=== PATIENT | female | born 1990 | race Caucasian/White ===

== ENCOUNTER → 2017-01-17 | Day surgery (SDC) | payer OTHER ==
[~2017-01-17] VITALS: Ht 154.9 cm; Wt 79.3 kg
[2017-01-17] VITALS (12 sets, daily range): BP systolic 104–132; BP diastolic 54–81; PULSE 64–93; RESP 9–28; O2SAT 94–100
[~2017-01-17] MED LIST: Bupivacaine-MPF 0.5% 30 mL Inj INFILTRATE ONE; Dexamethasone 4 mg/mL Inj IVPUSH PRN; Dexamethasone 4 mg/mL Inj ONE; EPHEDrine Sulfate 50 mg/mL Inj IVPUSH PRN; HYDROmorphone 0.5 mg/0.5 mL iSecure Syringe ONE; HYDROmorphone 1 mg/mL Inj IVPUSH PRN; Lactated Ringer's 1,000 ML IV SCH; Lactated Ringer's 500 ML IV PRN; MetoCLOpramide 5 mg/mL 2 mL Inj IVPUSH PRN; Ondansetron 2 mg/mL 2 mL Inj IVPUSH PRN; Ondansetron 2 mg/mL 2 mL Inj ONE; Phenylephrine 10,000 mCg/mL Inj IVPUSH PRN; Propofol 10,000 mCg/mL 20 mL Inj ONE; Rocuronium 10 mg/mL 5 mL Inj ONE; fentaNYL-PF 50 mCg/mL 2 mL Inj IVPUSH PRN; fentaNYL-PF 50 mCg/mL 2 mL Inj ONE
[2017-01-17] MEDS: Lactated Ringer's 1,000 ML IV SCH ×2 (05:42→07:25)
--- NOTE | 2017-01-17 07:13 | PCM.HPANE ---
Patient Data Date of Service: Jan 17, 2017 (0712) Surgeon Admitting Provider: Attending Provider:Jessica Hester MD Primary Care Physician:Jessica Hester MD Other Provider:Jonas High Anesthesia Reason for Visit Family Planning Ht/WT & BMI Height (Feet): 5 Height (Inches): 1.00 Weight (Kilograms): 79.3 Body Mass Index 33.00 Allergies Coded Allergies: No Known Allergies (Unverified , 01/12/17) Past Anesthesia History Anesthesia History: Denies:: Abnormal Airway, Anesthesia Reactions, Difficult Intubation, Fam Anesthesia Reaction, Fam Malignant Hypertherm, Malignant Hyperthermia Diabetes History Hx Diabetes?: No MRSA MRSA: No Medications Home Meds Incl Beta Toñito: No No Active Prescriptions or Reported Meds History History of ENT Problems?: No HEENT History: Positive for:: TMJ (pops with eating) Denies:: Abnormal Airway Difficult Intubation Dysphagia Hearing Problem Sinus Problem Denture Type: None Teeth Condition: Within Normal Limits Hx of Heart Problems?: No Cardiovascular History: Denies:: Coronary Artery Disease Hx of Respiratory Problem?: Yes Respiratory History: Positive for:: Asthma (seasonal ) Use of Inhalers / NEBS (albuterol) Denies:: Pneumonia Tuberculosis Hx Neurologic Problems?: No Neurological History: Denies:: Alzheimer's Disease CVA Dementia Dizziness Headaches Parkinson's Disease TIA Hx of GI Problems?: No Hx of Problems?: No Genitourinary History: Denies:: HX of Hemodialysis Urinary Tract Infection HX of Peritoneal Dialysis: No Female Hx: Denies:: Currently Problems with Breasts? Skin History: Denies:: History Skin Disorders? Pressure Ulcers Hx Musculoskeletal Problems?: No Hx of Psycho/Social Problems?: No Hx Surgeries?: Yes (tonsills and c section) Other History: Positive for:: Hospitalization (C- section) Denies:: Cancer Endocrine Disease Thyroid Disease History Blood Transfusions: Positive for:: Accept Blood Products? Denies:: Blood Transfusions Hx Diabetes: No Hx Alcohol Use: NoHx Substance Use: Yes (smoke) Stop/Bang S-Snoring: Do You Snore Loudly: Yes T-Tired: feel tired, fatigued: No O-Obsered: Observed not breath: No P-Blood Pressure: treated: No B- Body Mass Index > 35 kg/m2: No A- Age over 50: No N- Neck Large Circumference: No G- Gender Male: No CRISTY Total Score: 1 CRISTY Risk Assessment: Low Risk, <3 Yes Risk Assessment Category Category 1A: Patient has history of documented sleep apnea, and HAS NOT received any narcotic, sedative or anesthesia administration during this stay. Category 1B: Patient has history of documented sleep apnea, and HAS received any narcotic , sedative or anesthesia administration during this stay Category 2: Patient has SUSPECTED Obstructive Sleep Apnea, and HAS received any narcotic , sedative or anesthesia administration during this stay. Category 3: Patient has SUSPECTED Obstructive Sleep Apnea and HAS NOT received narcotic, sedative or anesthesia administration during this stay. Category 4: Outpatient in Procedural Areas with known sleep apnea or who screen positive for High Risk via the STOP/BANG questionnaire. Exam Exam Vital Signs Vital Signs Date Time Temp Pulse Resp B/P Pulse Ox O2 Delivery O2 Flow Rate FiO2 01/17/17 06:05 36.5 71 18 112/59 97 Room Air General Appearance: Alert, Oriented X3, Cooperative HEENT/AIRWAY: MP 2 Lungs: Clear to Auscultation Heart: Exam Unremarkable Meds/Labs/Diagnostics Admission Meds Current Medications Lactated Ringer's (Lr) 1,000 ml @ 120 mls/hr [id number] IV Last administered on t 05:42; Start 01/17/17 at 05:00; Stop 01/17/17 at 13:19 Plan Impression Patient chart reviewed, patient interviewed and anesthestic plan with risks, benefits, and alternatives discussed, and informed consent obtained. NPO per Anesth. Guidelines: Yes ASA Physical Status: ASA2 Mod Systemic Disease Anesthetic Plan: GA Bene/Risks/Altern/Consents: Yes HP Complete Prior to Induction: Yes Jhony Denny MD Jan 17, 2017 07:13
--- NOTE | 2017-01-17 08:34 | PCM.ANEP1 ---
Post Anesthesia PACU Phase 1 Assessment Vital Signs 36.6, 132/81, 100%, 20, 90 Vital Signs Date Time Temp Pulse Resp B/P Pulse Ox O2 Delivery O2 Flow Rate FiO2 01/17/17 06:05 36.5 71 18 112/59 97 Room Air Anesthetic Administered: GA Level of Alertness: Awake, talking CONNOLLY's with Equal Strength: Yes Pain: No Nausea or Vomiting: No CV Function & Hydration Stable: Yes Airway Device: none Oxygen Delivery: Room Air Lungs: Clear to Auscultation Dermatome Level: Full Sensation Summary uneventful GETA PACU Phase 2 Assessment Complications: No Follow up Care: No Patient Instructions Provided: N/A Jhony Denny MD Jan 17, 2017 08:34
--- NOTE | 2017-01-17 08:39 | PCM.DIGYN ---
Surgical Discharge Instruction Dates of Hospitalization Date of Hospital Admission Providers Admitting Physician: Primary Care Physician: Jessica Hester MD Attending Physician: Jessica Hester MD Diagnosis at Time of Discharge Diagnosis at time of discharge desire permanent sterilization s/p laparoscopy , BTL Post-operative diagnosis desire permanent sterilization s/p laparoscopy , BTL Problems: Diet Discharge Diet: No restrictions Activity Discharge Activity-General: Try not to overdue, Be up and about, Balance rest and activity, No driving while taking narcotic Dressing and Incisional Care Hygiene: May shower, NO bathtub, hot tub or whirlpool Additional Instructions Discharge Instructions please call office or go to ER if heavy vaginal bleeding, severe abdominal pain , foul smelling discharge, fever more than 100.4 or short of breath Follow Up Plan Follow Up Plan 2 weeks after procedure with Dr Hester Follow-up Provider (F9): Jessica Hester MD Follow-up appointment: Weeks (2) Call your provider for: Fever, Chills, Shortness of breath, Vomitting, Drainage at incision, Heavy vaginal bleeding, Wound redness, Increasing pain Jessica Hester MD Jan 17, 2017 08:39
[2017-01-17] MEDS: oxyCODONE-Acetamin 5-325 mg Tablet PO PRN ×2 (09:40→10:26)
--- NOTE | 2017-01-17 13:27 | DIS ---
[address] [address] DISCHARGE SUMMARY PATIENT: DANIELA SIMMONS : 1990 MR#: [id number] ADMIT: 01/17/2017 JOB ID: [id number] DIS: HOSPITAL COURSE: This is a 26-year-old female, 1, para one, status post by laparoscopic bilateral tubal ligation. The procedure was not complicated. PLAN: Discharge the patient home when she has recovered from her procedure, when she can void well, ambulate well, and pain well controlled. The patient was instructed to follow up in office two weeks after procedure. She is instructed that if there is heavy vaginal bleeding, severe abdominal pain, foul-smelling discharge, fever more than 100.4, or short of breath, she needs to call office or go to the ED for evaluation. Motrin 600 mg 30 pills prescribed for pain management. Percocet 5/325,10 pills prescribed for possible severe pain.
--- NOTE | 2017-01-17 13:33 | OP ---
[address] [address] OPERATIVE REPORT PATIENT: DANIELA SIMMONS : 1990 MR#: [id number] ADMIT: 01/17/2017 JOB ID: [id number] DATE OF SURGERY: 01/17/2017 SURGEON: Jessica Hestre M.D. SERVER DEVELOPER: Viry Guajardo M.D. certified ophthalmic assistant is necessary for this procedure to be completed for exposure and for performing the procedure together. PREOPERATIVE DIAGNOSIS(ES): A 26-year-old female, para 1, desire for permanent sterilization. POSTOPERATIVE DIAGNOSIS(ES): A 26-year-old female, para 1, desire for permanent sterilization. INDICATION OF PROCEDURE: A 26-year-old female, para 1, desire for permanent sterilization. PROCEDURE: Laparoscopy bilateral tubal ligation. This is a 26-year-old female. She is para 1. She presented to office to desire for permanent sterilization with bilateral tubal ligation. I discussed with patient several times about other choices of control including long reversible controls and she is also aware of other choices including control pills and injections and vaginal rings. She knows the benefit, risk of all these kinds of controls, but she still strongly desires for sterilization. Discussed the patient about the benefits and risks of sterilization, the risks including infection, bleeding, injury to the organs around the tubes including the uterus, ureters, major vessels, nerves, bladder, bowels. She also understood the risk of laparoscopy. Informed consent signed. PROCEDURE IN DETAIL: The patient was transferred to operating room after general anesthesia was noted to be adequate. She was placed in the dorsal lithotomy position. She was prepped as normal sterile fashion. A straight cath was down 100 cc of clear urine noticed. A speculum inserted into vagina to expose the cervix. The cervix was grasped by a single-tooth tenaculum and acorn manipulator is being placed for manipulation of the uterus. At this time, the attention was transferred to her abdomen. The Veress needle was inserted. After confirmed of the proper insertion, CO2 gas was placed in to form pneumoperitoneum. The maximum pressure limit was 15. At this time, the Veress needle removed and a 12 mm incision was placed at her umbilicus and a 10 mm trocar was placed with direct visualization. After confirmed insertion, the abdominal cavity was examined, has no abnormal findings. The patient was placed in Trendelenburg position. Her uterus was normal size, no abnormal findings. Bilateral ovaries and tubes looks normal. At this time, the Filshie clip was placed on the instrument and placed on the right tube at the inner one third location of the tube. The Filshie clip was placed and examined. The whole tube was clamped. The same procedure was performed on the left side and confirmed proper placement. At this time, all instruments removed from her abdomen. The CO2 gas was released completely. The fascia of the incision was closed with 0-Vicryl with a [id number] suture and confirmed proper closed. The skin was closed by 4-0 Monocryl on the UR needle subcutaneously. The patient tolerated the procedure well. All instrument, needles, laps and gauzes counted correct twice. The uterine manipulator also removed. The EBL during the procedure was 5 cc. Urine was strained 100 cc before the procedure. The patient was transferred to recovery room in a stable condition.
== END | disposition home or self-care (01) ==
LOC: SAS 05:37
PROVIDERS: ATTEND Obstetrics & Gynecology
DX: Z30.2 Encounter for sterilization (principal); J45.909 Unspecified asthma, uncomplicated; Z79.51 Long term (current) use of inhaled steroids
CPT/HCPCS: 58671; J1100; J1170; J1885; J2175; J2250; J2405; J2704; J3010; J7120